=== PATIENT | female | born 1955 | race African-American/Black ===

== ENCOUNTER 2020-08-19 14:44 | Observation (INO) ==
[2020-08-19 15:32] VITALS: BMI 29.7
--- NOTE | 2020-08-19 15:34 | DR.AMS ---
HPI Time Seen Time Seen by Provider: 08/19/20 15:06 HPI Comment HPI Comment: FAMILY CALLED EMS TO HOME FOR PATIENT WITH COMPLAINS OF EMESIS AND DIARRHEA X 1 WEEK. SPOUSE STATES PATIENT HAS EPISODES OF LETHARG AND CONFUSION. UNKNOWN IF PATIENT HAS BEEN TAKING EXTRA NORCO 10/325, SOMA AND GABAPENTIN. A DMITS THAT PATIENT IS ALWAYS DROWSY. NO HISTORY OF FEVER, COUGH OR DYSPNEA. PATIENT TESTED NEGATIVE FOR COVID 2 DAYS AGO IN PRIMARY CARE PROVIDER OFFICE. Complaint Cheif Complaint Doctors Comments: CONFUSION, VOMITING AND DIARRHEA Reviewed Nurses Notes Reviewed: Yes Source History Provided: Patient and Family Member Mode of Arrival Mode of Arrival: EMS Timing Onset of Chief Complaint: 08/12/20 Onset of Symptoms Start Date: 08/12/20 Context Recent: Nausea and Vomiting Associated Signs and Symptoms Associated Signs and Symptoms: Generalized Weakness and Confusion PMH PMH Past Medical History: Hypertension and Hypothyroidism Past Surgical History: Yes Surgical History: Appendectomy and Hysterectomy Family History Family Medical History: Diabetes Mellitus, Cancer, Coronary Artery Disease and Hypertension Social History Do you use any recreational Drugs:: No ROS Review of Systems Constitutional: See HPI Eyes: No Symptoms Reported ENTM: No Symptoms Reported Respiratoy: No Symptoms Reported Cardiovascular: No Symptoms Reported Gastrointestinal/Abdominal: See HPI, Diarrhea and Nausea Genitourinary: No Symptoms Reported Neurological: See HPI Musculoskeletal: No Symptoms Reported Integumentary: No Symptoms Reported Hematologic/Lymphatic: No Symptoms Reported Endocrine: No Symptoms Reported Psychiatric: No Symptoms Reported All Other Systems: Reviewed and Negative PE Vitals Vital Signs: Temp Pulse Pulse Resp BP BP Pulse Ox 08/19/20 17:45 116 H 08/19/20 17:30 116 H 34 H 126/76 08/19/20 17:24 113 H 121/65 08/19/20 17:18 99.0 F 118 H 20 128/80 98 08/19/20 17:15 119 H 25 H 08/19/20 17:00 109 H 22 08/19/20 16:45 104 H 24 08/19/20 16:30 108 H 19 08/19/20 16:26 110 H 12 08/19/20 16:03 113 H 34 H 08/19/20 15:45 105 H 32 H 08/19/20 15:44 105 H 23 128/80 08/19/20 15:30 105 H 18 08/19/20 15:18 104 H 21 97 08/19/20 14:46 99.1 F 115 H 20 139/82 97 04/02/18 08:20 166/94 General Limitations: No Limitations General Appearance: Alert (TO AGE, PERSON AND PLACE) and Lethargic (HAS EPISODES OF LETHARGY) Head Head Exam: Normal Inspection, Atraumatic and Normocephalic Eyes Eye exam: Normal Appearance and EOMI Pupils: Regular, Round: Bilateral ENT ENT Exam: Mucous Membranes Dry TM/Canal Exam: Bilateral: Normal Neck Neck Exam: Normal Inspection and Full ROM Chest Chest Inspection: Normal Inspection and Symmetric Chest Wall Rise Respiratory Respiratory Exam: Normal Lung Sounds Bilat Respiratory Exam: Bilateral: Clear to Auscultation Cardiovascular Cardiovascular Exam: Tachycardia Abdominal Exam Abdominal Exam: Normal Inspection, Normal Bowel Sounds and Tenderness (PERIUMBILICAL TENDERNESS) Abdominal Tenderness: Moderate (PERIUMBILICAL TENDERNESS) Back Back Exam: Normal Inspection and Full ROM Neurological Neurological Exam: Alert, Oriented X3 (ORIENTED X 2) and CN II-XII Intact Psychological Psychiatric Exam: Normal Mood and Flat Affect Skin Skin Exam: Warm and Dry MDM Differential Diagnosis Metabolic: Dehydration (ALTERED MENTAL STATUS) and Hypoglycemia COURSE Treatment Treatment: IV NORMAL SALINE 250ML/HR, ROCEPHIN 1GM IVPB FOR URINARY INFECTION, Consultation Call Returned: 17:45 Consultation Comments: DISCUSSED WITH DR BURGOS AT 1745 FOR ADMIT TO OBSERVATION ROR Labs Reviewed Laboratory Results Reviewed?: Yes Result Diagrams: 08/19/20 15:34 08/19/20 15:34 Laboratory: WBC 8.7 X10^3/uL (3.6-10.0) 08/19/20 15:34 RBC 3.63 X10^6/uL (3.5-5.4) 08/19/20 15:34 Hgb 11.1 g/dL (12.0-16.0) L 08/19/20 15:34 Hct 33.5 % (36.0-47.0) L 08/19/20 15:34 MCV 92.4 fL (80.0-100.0) 08/19/20 15:34 MCH 30.7 pg (27.0-34.0) 08/19/20 15:34 MCHC 33.2 g/dL (33.0-35.0) 08/19/20 15:34 RDW 13.8 % (11.6-16.5) 08/19/20 15:34 Plt Count 378 X10^3/uL (150.0-450.0) 08/19/20 15:34 MPV 8.6 fL (7.4-11.0) 08/19/20 15:34 Neut % (Auto) 65.1 % (42.0-75.0) 08/19/20 15:34 Lymph % (Auto) 24.2 % (21.0-51.0) 08/19/20 15:34 [place] % (Auto) 8.1 % (0.0-13.0) 08/19/20 15:34 Eos % (Auto) 2.2 % (0.9-2.9) 08/19/20 15:34 Baso % (Auto) 0.4 % (0.2-1.0) 08/19/20 15:34 Neut # (Auto) 5.7 x10^3/uL (2.2-4.8) H 08/19/20 15:34 Lymph # (Auto) 2.1 X10^3/uL (1.3-2.9) 08/19/20 15:34 [place] # (Auto) 0.7 x10^3/uL (0.3-0.8) 08/19/20 15:34 Eos # (Auto) 0.2 x10^3/uL (0.0-0.2) 08/19/20 15:34 Baso # (Auto) 0.0 X10^3/uL (0.0-0.1) 08/19/20 15:34 Absolute Nucleated RBC 0.1 /100WBC 08/19/20 15:34 Sodium 143 mmol/L (136-145) 08/19/20 15:34 Corrected Sodium TNP 08/19/20 15:34 Potassium 3.7 mmol/L (3.5-5.1) 08/19/20 15:34 Chloride 106 mmol/L (98-107) 08/19/20 15:34 Carbon Dioxide 21.8 mmol/L (21-32) 08/19/20 15:34 BUN 21 mg/dL (7-18) H 08/19/20 15:34 Creatinine 1.58 mg/dL (0.55-1.02) H 08/19/20 15:34 Est GFR (MDRD) Af Amer 42 (>60) L 08/19/20 15:34 Est GFR (MDRD) Non-Af 35 (>60) L 08/19/20 15:34 Glucose 103 mg/dL (65-99) H 08/19/20 15:34 Calcium 9.1 mg/dL (8.5-10.1) 08/19/20 15:34 Corrected Calcium 10.1 mg/dL (8.5-10.1) 08/19/20 15:34 Total Bilirubin 0.50 mg/dL (0.2-1.0) 08/19/20 15:34 AST 64 Units/L (15-37) H 08/19/20 15:34 ALT 60 Units/L (12-78) 08/19/20 15:34 Alkaline Phosphatase 88 Units/L (46-116) 08/19/20 15:34 Total Protein 8.5 g/dL (6.4-8.2) H 08/19/20 15:34 Albumin 2.8 g/dL (3.4-5.0) L 08/19/20 15:34 Globulin 5.7 g/dL (2.5-4.5) H 08/19/20 15:34 Albumin/Globulin Ratio 0.5 Ratio (1.1-2.1) L 08/19/20 15:34 Specimen Type Catherized urine 08/19/20 15:12 Urine Color Yellow (YELLOW) 08/19/20 15:12 Urine Appearance Slightly hazy (CLEAR) 08/19/20 15:12 Urine pH 5.0 (5.0 - 8.0) 08/19/20 15:12 Ur Specific [place] 1.015 (1.000-1.030) 08/19/20 15:12 Urine Protein 2+ (NEGATIVE) 08/19/20 15:12 Urine Glucose (UA) Negative (NEGATIVE) 08/19/20 15:12 Urine Ketones Negative (NEGATIVE) 08/19/20 15:12 Urine Occult Blood 1+ (NEGATIVE) 08/19/20 15:12 Urine Nitrite Negative (NEGATIVE) 08/19/20 15:12 Urine Bilirubin Negative (NEGATIVE) 08/19/20 15:12 Urine Urobilinogen Normal (NORMAL) 08/19/20 15:12 Ur Leukocyte Esterase 1+ (NEGATIVE) 08/19/20 15:12 Urine RBC 0-2 /HPF (0-3) 08/19/20 15:12 Urine WBC 3-5 /HPF (0-5) 08/19/20 15:12 Ur Squamous Epith Cells Moderate /HPF (NEGATIVE) 08/19/20 15:12 Urine Bacteria Trace /HPF (NEGATIVE) 08/19/20 15:12 Urine Mucus Rare /HPF (NEGATIVE) 08/19/20 15:12 Ur Culture Indicated? No/not indicated 08/19/20 15:12 Urine Opiates Screen Positive (NEG=<300) A 08/19/20 17:48 Urine Methadone Screen Negative (NEG=<300) 08/19/20 17:48 Ur Barbiturates Screen Negative (NEG=<200) 08/19/20 17:48 Ur Phencyclidine Scrn Negative (NEG=<25) 08/19/20 17:48 Ur Amphetamines Screen Negative (NEG=<1000) 08/19/20 17:48 U Benzodiazepines Scrn Positive (NEG=<200) A 08/19/20 17:48 Urine Cocaine Screen Negative (NEG=<300) 08/19/20 17:48 U Marijuana (THC) Screen Negative (NEG=<50) 08/19/20 17:48 SARS CoV-2 RNA Rapid CONRADO Positive (NEGATIVE) A 08/19/20 17:24 Other Results Comments: POSITIVE FOR COVID, XRAY X-ray Results: CHEST XRAY PORTABLE NEGATIVE FOR INFILTRATES, HEAD CT SCAN NEGATIVE, ABDOMINAL PELVIC CT SCAN NONCONTRAST NO INTRA-ABDOMINAL ABNORMALITY, THERE IS PATCH GROUND GLASS OPACITY IN LOWER LOBS EKG Rate: 106 [place]: Normal Rhythm: NSR and ST Opioid Opioid Risk Tool Total: 0 Total Score Risk Category: Low Risk Copyright: Peng LARIOS predicting aberrant behaviors Diagnosis Discharge Problem: Acute alteration in mental status, COVID-19, Acute dehydration, Urinary tract infection
[2020-08-19 15:45] LABS: BILIRUBIN,URINE NEGATIVE (NEGATIVE); BLOOD/HEMOGLOBIN,URINE 1+ (NEGATIVE); GLUCOSE, URINE NEGATIVE (NEGATIVE); KETONES,URINE NEGATIVE (NEGATIVE); LEUKOCYTE ESTERASE ,URINE 1+ (NEGATIVE); NITRITES,URINE NEGATIVE (NEGATIVE); PROTEIN,URINE 2+ (NEGATIVE); UROBILINOGEN,URINE NORMAL (NORMAL)
[2020-08-19 15:55] LABS: APPEARANCE,URINE SLIGHTLY HAZY (CLEAR); COLOR,URINE YELLOW (YELLOW)
[2020-08-19 15:56] LABS: BACTERIA,URINE TRACE /HPF (NEGATIVE); MUCUS,URINE RARE /HPF (NEGATIVE); RBC,URINE 0-2 /HPF (0-3); SQUAMOUS EPITHELIAL CELL,UR MODERATE /HPF (NEGATIVE)
[2020-08-19 16:01] LABS: BASOPHILS % (AUTO) 0.4 % (0.2-1.0); EOSINOPHILS # (AUTO) 0.2 x10^3/uL (0.0-0.2); EOSINOPHILS % (AUTO) 2.2 % (0.9-2.9); HEMATOCRIT 33.5 % (36.0-47.0); HEMOGLOBIN 11.1 g/dL (12.0-16.0); LYMPHOCYTES # (AUTO) 2.1 X10^3/uL (1.3-2.9); LYMPHOCYTES % (AUTO) 24.2 % (21.0-51.0); MEAN CORPUSCULAR HEMOGLOBIN 30.7 pg (27.0-34.0); MEAN CORPUSCULAR HGB CONC 33.2 g/dL (33.0-35.0); MEAN CORPUSCULAR VOLUME 92.4 fL (80.0-100.0); MEAN PLATELET VOLUME 8.6 fL (7.4-11.0); MONOCYTES # (AUTO) 0.7 x10^3/uL (0.3-0.8); MONOCYTES % (AUTO) 8.1 % (0.0-13.0); NEUTROPHILS # (AUTO) 5.7 x10^3/uL (2.2-4.8); NEUTROPHILS % (AUTO) 65.1 % (42.0-75.0); PLATELET COUNT 378 X10^3/uL (150.0-450.0); RED BLOOD COUNT 3.63 X10^6/uL (3.5-5.4); RED CELL DISTRIBUTION WIDTH 13.8 % (11.6-16.5); WHITE BLOOD COUNT 8.7 X10^3/uL (3.6-10.0)
[2020-08-19 16:04] LABS: ALANINE AMINOTRANSFERASE 60 Units/L (12-78); ALBUMIN 2.8 g/dL (3.4-5.0); ALKALINE PHOSPHATASE 88 Units/L (46-116); ASPARTATE AMINO TRANSFERASE 64 Units/L (15-37); BLOOD UREA NITROGEN 21 mg/dL (7-18); CALCIUM 9.1 mg/dL (8.5-10.1); CARBON DIOXIDE 21.8 mmol/L (21-32); CHLORIDE 106 mmol/L (98-107); COR CA(FOR HYPOALB) 10.1 mg/dL (8.5-10.1); CREATININE 1.58 mg/dL (0.55-1.02); SODIUM 143 mmol/L (136-145); TOTAL PROTEIN 8.5 g/dL (6.4-8.2); eGFR NON BLACK RACES 35 (>60)
[2020-08-19] MEDS ORDERED: NS 1000 ML 1,000 ML IV ONE (16:11)
[2020-08-19] MEDS ORDERED: NS 1000 ML 1,000 ML ONE (16:12)
--- NOTE | 2020-08-19 16:18 | CT ---
BRAIN W/O CONCLINICAL INDICATION: AMSTECHNIQUE: Images were obtained through the head per standard CT protocol. Multiplanar reformatted images were generated from the CT dataset. Dose reduction techniques including Automated Exposure Control (AEC) and adjustment of mA and kV were utlized.COMPARISON:None.FINDINGS:There is no abnormal brain parenchymal density . There is no evidence of acute infarction, intracranial hemorrhage, mass or mass effect, or abnormal extra-axial collection . The density of the larger dural venous sinuses is normal . The ventricles are normal in size, shape and position . The skull base and calvarium are normal .The included paranasal sinuses and mastoid air cells are predominantly clear .IMPRESSION:1. No acute intracranial abnormality.Electronically signed by: MIRELA NAVARRETE (Aug 19, 2020 16:15:58)
--- NOTE | 2020-08-19 16:19 | RAD ---
HISTORYCOUGHSTUDYCHEST, 1 VIEWCOMPARISONNoneFINDINGSThe trachea is midline. The cardiac silhouette is unremarkable . The lungs are clear without focal infiltrate or effusion. The bony thorax is unremarkable.IMPRESSIONNo acute cardiopulmonary disease.Electronically signed by: SIA MONTES (Aug 19, 2020 16:17:11)
--- NOTE | 2020-08-19 16:36 | CT ---
HISTORYfamily states pt has had ams and weakness x several days. Hypertension.STUDYABDOMEN/PELVIS W/O CONCOMPARISONNoneTECHNIQUEMultiple CT axial images of the abdomen and pelvis were obtained without IV contrast. Coronal and sagittal images were reconstructed. Dose reduction techniques included Automated Exposure Control (AEC) and adjustment of mA and kV.FINDINGSPatchy bilateral areas of ground-glass opacity in the lungs are compatible with bronchopneumonia. The appearance is typical for COVID-19. Recommend correlation with COVID testing.No pleural effusion or pneumothorax. Heart size normal.The liver is normal in size and configuration. The gallbladder has no inflammation around it. The spleen is normal in size and shape.The adrenal glands are normal. The pancreas is normal.The kidneys have normal size and shape. No abnormal calcification is present. There is no hydronephrosis or significant perirenal edema. The ureters are not dilated. Sharma balloon catheter is in a contracted urinary bladder.The bowel is not dilated. There is no wall thickening in the bowel or edema around the bowel.No uterus identified. No mass or free fluid. No inflammatory changes.Degenerative changes are present in the spine. Fixation hardware is present.IMPRESSION1. Findings compatible with COVID-19 pneumonia2. No acute finding in the abdomen or pelvisElectronically signed by: Ryan Holloway (Aug 19, 2020 16:34:56)
[2020-08-19] MEDS ORDERED: ROCEPHIN 1 GRAM IV PREMIX 1 G/50 ML IV.SOLN. IV ONE ×2 (17:10→17:16)
[2020-08-19] MEDS ORDERED: ROCEPHIN VIAL 1 GRAM 0.75 G in NS 50 ML IV 50 ML IV SCH (19:33)
[2020-08-19] MEDS: NORCO 10/325 TAB PO PRN (20:20)
[2020-08-19] MEDS ORDERED: PERIACTIN TAB 4 MG PO SCH (21:00)
[2020-08-19] MEDS: NS 1000 ML 1,000 ML IV SCH (21:45)
[2020-08-19] MEDS: ZESTRIL TAB 40 MG PO SCH (21:52)
[2020-08-20] MEDS: SYNTHROID 125 mcg TAB PO SCH (07:25)
[2020-08-20 08:24] LABS: BASOPHILS # (AUTO) 0.2 X10^3/uL (0.0-0.1); BASOPHILS % (AUTO) 1.4 % (0.2-1.0); EOSINOPHILS # (AUTO) 0.1 x10^3/uL (0.0-0.2); EOSINOPHILS % (AUTO) 0.5 % (0.9-2.9); HEMATOCRIT 29.7 % (36.0-47.0); HEMOGLOBIN 9.7 g/dL (12.0-16.0); LYMPHOCYTES % (AUTO) 9.2 % (21.0-51.0); MEAN CORPUSCULAR HGB CONC 32.6 g/dL (33.0-35.0); MEAN PLATELET VOLUME 8.2 fL (7.4-11.0); MONOCYTES # (AUTO) 0.9 x10^3/uL (0.3-0.8); MONOCYTES % (AUTO) 7.8 % (0.0-13.0); NEUTROPHILS # (AUTO) 9.2 x10^3/uL (2.2-4.8); NEUTROPHILS % (AUTO) 81.1 % (42.0-75.0); PLATELET COUNT 419 X10^3/uL (150.0-450.0); RED BLOOD COUNT 3.23 X10^6/uL (3.5-5.4); RED CELL DISTRIBUTION WIDTH 14.1 % (11.6-16.5); WHITE BLOOD COUNT 11.4 X10^3/uL (3.6-10.0)
[2020-08-20 08:34] LABS: ALANINE AMINOTRANSFERASE 59 Units/L (12-78); ALBUMIN 2.4 g/dL (3.4-5.0); ALKALINE PHOSPHATASE 79 Units/L (46-116); ASPARTATE AMINO TRANSFERASE 78 Units/L (15-37); BLOOD UREA NITROGEN 10 mg/dL (7-18); CALCIUM 8.6 mg/dL (8.5-10.1); CARBON DIOXIDE 21.6 mmol/L (21-32); CHLORIDE 110 mmol/L (98-107); COR CA(FOR HYPOALB) 9.9 mg/dL (8.5-10.1); COR NA(FOR HYPERGLY) 146 mmol/L (136-145); SODIUM 144 mmol/L (136-145); TOTAL PROTEIN 7.6 g/dL (6.4-8.2); eGFR NON BLACK RACES 60 (>60)
[2020-08-20] MEDS: ZESTRIL TAB 40 MG PO SCH (09:11)
[2020-08-20] MEDS: CELEXA PO SCH (09:11)
[2020-08-20] MEDS: PREMARIN PO SCH (09:11)
[2020-08-20] MEDS: NEURONTIN TAB 600 MG PO SCH ×2 (09:11→20:20)
[2020-08-20] MEDS: PROTONIX TAB 40 MG PO SCH (09:11)
[2020-08-20] MEDS: ROCEPHIN VIAL 1 GRAM 1 G in NS 50 ML IV 50 ML IV SCH (09:12)
[2020-08-20] MEDS: DUONEB 0.5 MG/3 MG (3 mL) NEB SCH ×2 (09:23→21:09)
--- NOTE | 2020-08-20 10:03 | DR.H&P ---
H&P History & Physical for Day of: H&P Date: 08/20/20 Chief Complaint Chief Complaint: weakness, confusion, diarrhea Allergies Allergies Allergy/AdvReac Type Severity Reaction Status Date / Time No Known Drug Allergies Allergy Verified 04/02/18 05:17 History of Present Illness History of Present Illness: Ms. Loya is a 65y/o female with a PMH of HTN, HLD, GERD, DDD and anxiety presented with generalized weakness, confusion and dehydration. Patient has had these Sx for over 2 weeks and gradually worsening. She was seen in the clinic on 08/17/20 for similar Sx and COVID swab was collected. Patient's COVID test came back negative but she continued to have wor sening Sx so was brought to the ER. Patient has been having poor appetite and diarrhea. Unable to obtain proper history as patient has been upset since she got admitted and refusing medications and treatment. Patient had a rapid covid test done in the ER and that was positive for COVID- 19. Patient was told the results and she became very upset. Patient wanted to leave AMA last night but since she was not alert/oriented, patient's wanted her to stay and get treated. Patient is currently alert and oriented. She is currently on room air. ER work-up - CTAP: patchy ground glass opacities concerning for COVID-19 pneumonia, no acute process in the abdomen - CXR: no acute process - CT-brain: no acute process Labs: Hgb 9.7 WBC 11.4 BUN/Cr: 10/1 (down from 1.58) CRP 224 AT 78 UDS: Benzo + Opiates - COVID-19 positive - UA: + LE, WBC present, trace bacteria Plan: continue gentle hydration. Continue IV Rocephin. Will check for C.diff. Resume home medications. Add Duonebs prn. Monitor AM labs/Imaging. Past Medical History Past Medical History: Arthritis, GERD, Hypertension and Hypothyroidism Past Surgical History Surgical History: Appendectomy and Hysterectomy Family History Family Medical History: Diabetes Mellitus, Cancer, Coronary Artery Disease and Hypertension Social History Does any household member use tobacco: No Alcohol Use: None Prescription drug monitoring program results: PDMP reviewed and no concerns identified Medications Home Medications: No Known Drug Allergies Allergy (Verified 04/02/18 05:17) Labs Result Diagrams: 08/20/20 08:02 08/20/20 08:02 Labs: Laboratory WBC 11.4 X10^3/uL (3.6-10.0) H 08/20/20 08:02 RBC 3.23 X10^6/uL (3.5-5.4) L 08/20/20 08:02 Hgb 9.7 g/dL (12.0-16.0) L 08/20/20 08:02 Hct 29.7 % (36.0-47.0) L 08/20/20 08:02 MCV 92.0 fL (80.0-100.0) 08/20/20 08:02 MCH 30.0 pg (27.0-34.0) 08/20/20 08:02 MCHC 32.6 g/dL (33.0-35.0) L 08/20/20 08:02 RDW 14.1 % (11.6-16.5) 08/20/20 08:02 Plt Count 419 X10^3/uL (150.0-450.0) 08/20/20 08:02 MPV 8.2 fL (7.4-11.0) 08/20/20 08:02 Neut % (Auto) 81.1 % (42.0-75.0) H 08/20/20 08:02 Lymph % (Auto) 9.2 % (21.0-51.0) L 08/20/20 08:02 [place] % (Auto) 7.8 % (0.0-13.0) 08/20/20 08:02 Eos % (Auto) 0.5 % (0.9-2.9) L 08/20/20 08:02 Baso % (Auto) 1.4 % (0.2-1.0) H 08/20/20 08:02 Neut # (Auto) 9.2 x10^3/uL (2.2-4.8) H 08/20/20 08:02 Lymph # (Auto) 1.0 X10^3/uL (1.3-2.9) L 08/20/20 08:02 [place] # (Auto) 0.9 x10^3/uL (0.3-0.8) H 08/20/20 08:02 Eos # (Auto) 0.1 x10^3/uL (0.0-0.2) 08/20/20 08:02 Baso # (Auto) 0.2 X10^3/uL (0.0-0.1) H 08/20/20 08:02 Absolute Nucleated RBC 0.0 /100WBC 08/20/20 08:02 Sodium 144 mmol/L (136-145) 08/20/20 08:02 Corrected Sodium 146 mmol/L (136-145) H 08/20/20 08:02 Potassium 3.7 mmol/L (3.5-5.1) 08/20/20 08:02 Chloride 110 mmol/L (98-107) H 08/20/20 08:02 Carbon Dioxide 21.6 mmol/L (21-32) 08/20/20 08:02 BUN 10 mg/dL (7-18) 08/20/20 08:02 Creatinine 1.00 mg/dL (0.55-1.02) 08/20/20 08:02 Est GFR (MDRD) Af Amer > 60 (>60) 08/20/20 08:02 Est GFR (MDRD) Non-Af 60 (>60) 08/20/20 08:02 Glucose 171 mg/dL (65-99) H 08/20/20 08:02 Calcium 8.6 mg/dL (8.5-10.1) 08/20/20 08:02 Corrected Calcium 9.9 mg/dL (8.5-10.1) 08/20/20 08:02 Total Bilirubin 0.40 mg/dL (0.2-1.0) 08/20/20 08:02 AST 78 Units/L (15-37) H 08/20/20 08:02 ALT 59 Units/L (12-78) 08/20/20 08:02 Alkaline Phosphatase 79 Units/L (46-116) 08/20/20 08:02 C-Reactive Protein 224.10 mg/L (0-3.0) H 08/20/20 08:02 Total Protein 7.6 g/dL (6.4-8.2) 08/20/20 08:02 Albumin 2.4 g/dL (3.4-5.0) L 08/20/20 08:02 Globulin 5.2 g/dL (2.5-4.5) H 08/20/20 08:02 Albumin/Globulin Ratio 0.5 Ratio (1.1-2.1) L 08/20/20 08:02 Specimen Type Catherized urine 08/19/20 15:12 Urine Color Yellow (YELLOW) 08/19/20 15:12 Urine Appearance Slightly hazy (CLEAR) 08/19/20 15:12 Urine pH 5.0 (5.0 - 8.0) 08/19/20 15:12 Ur Specific [place] 1.015 (1.000-1.030) 08/19/20 15:12 Urine Protein 2+ (NEGATIVE) 08/19/20 15:12 Urine Glucose (UA) Negative (NEGATIVE) 08/19/20 15:12 Urine Ketones Negative (NEGATIVE) 08/19/20 15:12 Urine Occult Blood 1+ (NEGATIVE) 08/19/20 15:12 Urine Nitrite Negative (NEGATIVE) 08/19/20 15:12 Urine Bilirubin Negative (NEGATIVE) 08/19/20 15:12 Urine Urobilinogen Normal (NORMAL) 08/19/20 15:12 Ur Leukocyte Esterase 1+ (NEGATIVE) 08/19/20 15:12 Urine RBC 0-2 /HPF (0-3) 08/19/20 15:12 Urine WBC 3-5 /HPF (0-5) 08/19/20 15:12 Ur Squamous Epith Cells Moderate /HPF (NEGATIVE) 08/19/20 15:12 Urine Bacteria Trace /HPF (NEGATIVE) 08/19/20 15:12 Urine Mucus Rare /HPF (NEGATIVE) 08/19/20 15:12 Ur Culture Indicated? No/not indicated 08/19/20 15:12 Urine Opiates Screen Positive (NEG=<300) A 08/19/20 17:48 Urine Methadone Screen Negative (NEG=<300) 08/19/20 17:48 Ur Barbiturates Screen Negative (NEG=<200) 08/19/20 17:48 Ur Phencyclidine Scrn Negative (NEG=<25) 08/19/20 17:48 Ur Amphetamines Screen Negative (NEG=<1000) 08/19/20 17:48 U Benzodiazepines Scrn Positive (NEG=<200) A 08/19/20 17:48 Urine Cocaine Screen Negative (NEG=<300) 08/19/20 17:48 U Marijuana (THC) Screen Negative (NEG=<50) 08/19/20 17:48 SARS CoV-2 RNA Rapid CONRADO Positive (NEGATIVE) A 08/19/20 17:24 Review of Systems Constitutional: Fever, Weakness and Malaise Eyes: No Symptoms Reported ENT: No Symptoms Reported Respiratory: No Symptoms Reported Cardiovascular: No Symptoms Reported Gastrointestinal: Nausea and Diarrhea Genitourinary: No Symptoms Reported Musculoskeletal: Back Pain Skin: No Symptoms Reported Neurological: Confusion Physical Exam Vital Signs: Temperature 99.7 F Pulse Rate [Apical] 127 Pulse Rate [Left Radial] 118 Pulse Rate 116 Respiratory Rate 24 Blood Pressure [Left Arm] 159/76 Blood Pressure 126/76 O2 Sat by Pulse Oximetry 92 Oriented: Normal Eyes: Normal Ear: Normal Throat: Dry Respiratory: Diminished Throughout Cardiovascular: Tachycardia Auscultation: Bowel Sounds: Increased Palpation: Normal Tenderness: Normal Skin: Decreased Turgur Musculoskeletal: Back:Thoracic, Back:Lumbar and Back:Paraspinous Psychiatric: Agitation Mood Description: Angry Affect: Angry Speech Pattern: Clear and Appropriate Assessment/Plan (1) Pneumonia due to COVID-19 virus: Status: Acute (2) COVID-19: Status: Acute (3) Diarrhea: Qualifiers: Diarrhea type: unspecified type Qualified Code(s): R19.7 - Diarrhea, unspecified Status: Acute (4) Urinary tract infection: Qualifiers: Hematuria presence: without hematuria Urinary tract infection type: acu te cystitis Qualified Code(s): N30.00 - Acute cystitis without hematuria Status: Acute (5) Acute alteration in mental status: Status: Acute (6) Acute dehydration: Status: Acute (7) Hypertension: Qualifiers: Hypertension type: unspecified Qualified Code(s): I10 - Essential (primary) hypertension Status: Acute (8) Anxiety: Status: Acute (9) Chronic, continuous use of opioids: Status: Acute Review H&P Reviewed: Yes Patient was examined?: Yes
[2020-08-20] MEDS: VITAMIN D3 125 mcg (5,000 UNITS) PO SCH (10:30)
[2020-08-20] MEDS: VITAMIN C PO SCH (10:30)
[2020-08-20] MEDS: NS 1000 ML 1,000 ML IV SCH (14:14)
[2020-08-20] MEDS: XANAX PO PRN (20:20)
[2020-08-20] MEDS: NORCO 10/325 TAB PO PRN (20:20)
[2020-08-21] MEDS ORDERED: AMBIEN PO PRN (00:13)
[2020-08-21] MEDS: NS 1000 ML 1,000 ML IV SCH ×3 (00:14→16:30)
[2020-08-21 04:57] LABS: BLOOD UREA NITROGEN 6 mg/dL (7-18); CALCIUM 8.3 mg/dL (8.5-10.1); CARBON DIOXIDE 25.1 mmol/L (21-32); CHLORIDE 110 mmol/L (98-107); COR NA(FOR HYPERGLY) 144 mmol/L (136-145); CREATININE 0.81 mg/dL (0.55-1.02); SODIUM 144 mmol/L (136-145); eGFR NON BLACK RACES > 60 (>60)
[2020-08-21 04:59] LABS: BASOPHILS % (AUTO) 0.5 % (0.2-1.0); EOSINOPHILS # (AUTO) 0.2 x10^3/uL (0.0-0.2); EOSINOPHILS % (AUTO) 2.5 % (0.9-2.9); HEMATOCRIT 28.9 % (36.0-47.0); HEMOGLOBIN 9.3 g/dL (12.0-16.0); LYMPHOCYTES # (AUTO) 1.7 X10^3/uL (1.3-2.9); LYMPHOCYTES % (AUTO) 19.5 % (21.0-51.0); MEAN CORPUSCULAR HEMOGLOBIN 29.9 pg (27.0-34.0); MEAN CORPUSCULAR HGB CONC 32.2 g/dL (33.0-35.0); MEAN CORPUSCULAR VOLUME 92.9 fL (80.0-100.0); MEAN PLATELET VOLUME 8.3 fL (7.4-11.0); MONOCYTES # (AUTO) 0.9 x10^3/uL (0.3-0.8); MONOCYTES % (AUTO) 10.6 % (0.0-13.0); NEUTROPHILS # (AUTO) 5.8 x10^3/uL (2.2-4.8); NEUTROPHILS % (AUTO) 66.9 % (42.0-75.0); PLATELET COUNT 435 X10^3/uL (150.0-450.0); RED BLOOD COUNT 3.11 X10^6/uL (3.5-5.4); WHITE BLOOD COUNT 8.7 X10^3/uL (3.6-10.0)
[2020-08-21] MEDS ORDERED: MICRO K EXTEN CAP 10 MEQ PO PRN (05:39)
[2020-08-21] MEDS ORDERED: POTASSIUM CHL 40 MEQ/NS 0.45% 500 ML IV PRN (05:39)
[2020-08-21] MEDS ORDERED: POTASSIUM CHLORIDE LIQ 20 MEQ UDC PO PRN (05:39)
[2020-08-21] MEDS ORDERED: K-RIDER 10 MEQ/NS 100 ML 10 MEQ/100 ML BAG IV PRN (05:39)
[2020-08-21] MEDS ORDERED: POTASSIUM CHL 60 MEQ/NS 0.45% 500 ML IV PRN (05:39)
[2020-08-21] MEDS ORDERED: KLOR-CON PO PRN (05:39)
[2020-08-21] MEDS ORDERED: K-DUR TAB 20 MEQ PO PRN (05:39)
[2020-08-21] MEDS: MAGNESIUM SULFATE 1 GRAM/100 mL PREMIX 1 GM/100 ML BAG IV PRN ×2 (06:30→09:43)
[2020-08-21] MEDS: SYNTHROID 125 mcg TAB PO SCH (06:30)
[2020-08-21] MEDS: NORCO 10/325 TAB PO PRN (06:30)
[2020-08-21] MEDS: DUONEB 0.5 MG/3 MG (3 mL) NEB SCH (09:06)
[2020-08-21] MEDS: ZESTRIL TAB 40 MG PO SCH (09:34)
[2020-08-21] MEDS: VITAMIN D3 125 mcg (5,000 UNITS) PO SCH (09:34)
[2020-08-21] MEDS: VITAMIN C PO SCH (09:34)
[2020-08-21] MEDS: PROTONIX TAB 40 MG PO SCH (09:34)
[2020-08-21] MEDS: CELEXA PO SCH (09:34)
[2020-08-21] MEDS: NEURONTIN TAB 600 MG PO SCH ×3 (09:34→16:30)
[2020-08-21] MEDS: PREMARIN PO SCH (09:34)
[2020-08-21] MEDS: XANAX PO PRN (09:35)
[2020-08-21] MEDS: ROCEPHIN VIAL 1 GRAM 1 G in NS 50 ML IV 50 ML IV SCH (09:36)
[2020-08-21] MEDS ORDERED: NORCO 10/325 TAB PO ONE (10:56)
[2020-08-21] MEDS ORDERED: NORCO 10/325 TAB PO PRN ×2 (10:56→10:57)
[2020-08-21] MEDS ORDERED: XANAX PO ONE (13:14)
[2020-08-21] MEDS ORDERED: XANAX PO SCH (14:00)
[2020-08-21 16:30] VITALS: BP 161/89
--- NOTE | 2020-08-22 12:04 | W.DIS.FURT ---
Summary of Discharge Discharge Summary of Date Date of Exam: 08/21/20 Admission Date Date of Admission: 08/19/20 Admission Diagnosis Patient Problems (Updated 08/24/20 @ 14:29 by Analilia Patrick) Acute alteration in mental status (Acute) R41.82 COVID-19 (Acute) U07.1 Acute dehydration (Acute) E86.0 Urinary tract infection (Resolved) N39.0 Hospital Course: Ms. Loya is a 65y/o female with a PMH of HTN, HLD, GERD, DDD and anxiety presented with generalized weakness, confusion and dehydration. Patient has had these Sx for over 2 weeks and gradually worsening. She was seen in the clinic on 08/17/20 for similar Sx and COVID swab was collected. Patient's COVID test came back negative but she continued to have worsening Sx so was brought to the ER. Patient has been having poor appetite and diarrhea. Patient had a rapid covid test done in the ER and that was positive for COVID-19. CT-AP was done and did not show any acute process in the abdomen, it did show patchy ground glass opacities. CT-heas was negative. Her labs showed anemia, elevated WBC and elevated Creatinine. UA showed + LE and WBC. Patient was started on IV hydration and empiric Rocephin IV for UTI. Patient did not require oxygen. Duonebs were also added as needed. C.diff was ordered for diarrhea but did not get collected. Patient initially refused to cooperate and refused medications and treatment. Her labs were monitored daily and electrolytes replaced as needed. She did start eating a little bit and ambulated with RT. Her saturations remained stable on room air. Urine Cx showed no growth. Patient was stable for discharge. She was alert and oriented on discharge.She will f/u with PCP in 1 week for a tele- visit. Patient was instructed to quarantine and isolate at home for a total of 14 days. Patient verbalized understanding. Vital Signs: Vital Signs (72 hours) 08/19/20 14:46 08/19/20 15:18 08/19/20 15:30 Temperature 99.1 F Pulse Rate 115 H 104 H 105 H Pulse Rate [Apical] Pulse Rate [Left Radial] Respiratory Rate 20 21 18 Blood Pressure 139/82 Blood Pressure [Left Arm] Blood Pressure [Right Arm] O2 Sat by Pulse Oximetry 97 97 08/19/20 15:44 08/19/20 15:45 08/19/20 16:03 Temperature Pulse Rate 105 H 105 H 113 H Pulse Rate [Apical] Pulse Rate [Left Radial] Respiratory Rate 23 32 H 34 H Blood Pressure 128/80 Blood Pressure [Left Arm] Blood Pressure [Right Arm] O2 Sat by Pulse Oximetry 08/19/20 16:26 08/19/20 16:30 08/19/20 16:45 Temperature Pulse Rate 110 H 108 H 104 H Pulse Rate [Apical] Pulse Rate [Left Radial] Respiratory Rate 12 19 24 Blood Pressure Blood Pressure [Left Arm] Blood Pressure [Right Arm] O2 Sat by Pulse Oximetry 08/19/20 17:00 08/19/20 17:15 08/19/20 17:18 Temperature 99.0 F Pulse Rate 109 H 119 H Pulse Rate [Apical] Pulse Rate [Left Radial] 118 H Respiratory Rate 22 25 H 20 Blood Pressure Blood Pressure [Left Arm] 128/80 Blood Pressure [Right Arm] O2 Sat by Pulse Oximetry 98 08/19/20 17:24 08/19/20 17:30 08/19/20 17:45 Temperature Pulse Rate 113 H 116 H 116 H Pulse Rate [Apical] Pulse Rate [Left Radial] Respiratory Rate 34 H Blood Pressure 121/65 126/76 Blood Pressure [Left Arm] Blood Pressure [Right Arm] O2 Sat by Pulse Oximetry 08/19/20 21:20 08/20/20 00:00 08/20/20 04:00 Temperature 99.0 F 99.8 F H 99.7 F H Pulse Rate Pulse Rate [Apical] 116 H 130 H 127 H Pulse Rate [Left Radial] Respiratory Rate 28 H 22 24 Blood Pressure Blood Pressure [Left Arm] 138/86 170/76 159/76 Blood Pressure [Right Arm] O2 Sat by Pulse Oximetry 95 95 92 L 08/20/20 08:00 08/20/20 14:13 08/20/20 16:00 Temperature 98.6 F 98.7 F 98.8 F Pulse Rate Pulse Rate [Apical] 115 H 97 H 96 H Pulse Rate [Left Radial] Respiratory Rate 28 H 22 22 Blood Pressure Blood Pressure [Left Arm] 135/75 144/64 162/84 Blood Pressure [Right Arm] O2 Sat by Pulse Oximetry 96 96 08/20/20 20:00 08/20/20 20:20 08/20/20 21:09 Temperature 98.2 F Pulse Rate 95 H Pulse Rate [Apical] 97 H Pulse Rate [Left Radial] Respiratory Rate 25 H 22 Blood Pressure Blood Pressure [Left Arm] 160/73 Blood Pressure [Right Arm] O2 Sat by Pulse Oximetry 94 L 94 L 08/20/20 21:20 08/21/20 00:00 08/21/20 04:00 Temperature 97.4 F L 99.0 F Pulse Rate Pulse Rate [Apical] 78 85 Pulse Rate [Left Radial] Respiratory Rate 22 22 20 Blood Pressure Blood Pressure [Left Arm] 138/72 169/89 Blood Pressure [Right Arm] O2 Sat by Pulse Oximetry 100 95 08/21/20 06:30 08/21/20 07:30 08/21/20 08:00 Temperature Pulse Rate Pulse Rate [Apical] 74 Pulse Rate [Left Radial] Respiratory Rate 18 18 27 H Blood Pressure Blood Pressure [Left Arm] Blood Pressure [Right Arm] 138/68 O2 Sat by Pulse Oximetry 99 08/21/20 09:06 08/21/20 11:24 08/21/20 12:00 Temperature 97.9 F Pulse Rate 78 Pulse Rate [Apical] 100 H Pulse Rate [Left Radial] Respiratory Rate 20 30 H Blood Pressure Blood Pressure [Left Arm] Blood Pressure [Right Arm] 157/75 O2 Sat by Pulse Oximetry 99 96 08/21/20 12:24 08/21/20 14:15 08/21/20 16:00 Temperature 97.9 F Pulse Rate 78 Pulse Rate [Apical] 87 Pulse Rate [Left Radial] Respiratory Rate 18 18 15 Blood Pressure 126/76 Blood Pressure [Left Arm] Blood Pressure [Right Arm] 161/89 O2 Sat by Pulse Oximetry 98 98 Labs: Laboratory Last Values WBC 8.7 X10^3/uL (3.6-10.0) 08/21/20 04:20 RBC 3.11 X10^6/uL (3.5-5.4) L 08/21/20 04:20 Hgb 9.3 g/dL (12.0-16.0) L 08/21/20 04:20 Hct 28.9 % (36.0-47.0) L 08/21/20 04:20 MCV 92.9 fL (80.0-100.0) 08/21/20 04:20 MCH 29.9 pg (27.0-34.0) 08/21/20 04:20 MCHC 32.2 g/dL (33.0-35.0) L 08/21/20 04:20 RDW 14.0 % (11.6-16.5) 08/21/20 04:20 Plt Count 435 X10^3/uL (150.0-450.0) 08/21/20 04:20 MPV 8.3 fL (7.4-11.0) 08/21/20 04:20 Neut % (Auto) 66.9 % (42.0-75.0) 08/21/20 04:20 Lymph % (Auto) 19.5 % (21.0-51.0) L 08/21/20 04:20 [place] % (Auto) 10.6 % (0.0-13.0) 08/21/20 04:20 Eos % (Auto) 2.5 % (0.9-2.9) 08/21/20 04:20 Baso % (Auto) 0.5 % (0.2-1.0) 08/21/20 04:20 Neut # (Auto) 5.8 x10^3/uL (2.2-4.8) H 08/21/20 04:20 Lymph # (Auto) 1.7 X10^3/uL (1.3-2.9) 08/21/20 04:20 [place] # (Auto) 0.9 x10^3/uL (0.3-0.8) H 08/21/20 04:20 Eos # (Auto) 0.2 x10^3/uL (0.0-0.2) 08/21/20 04:20 Baso # (Auto) 0.0 X10^3/uL (0.0-0.1) 08/21/20 04:20 Absolute Nucleated RBC 0.1 /100WBC 08/21/20 04:20 Sodium 144 mmol/L (136-145) 08/21/20 04:20 Corrected Sodium 144 mmol/L (136-145) 08/21/20 04:20 Potassium 3.4 mmol/L (3.5-5.1) L 08/21/20 04:20 Chloride 110 mmol/L (98-107) H 08/21/20 04:20 Carbon Dioxide 25.1 mmol/L (21-32) 08/21/20 04:20 BUN 6 mg/dL (7-18) L 08/21/20 04:20 Creatinine 0.81 mg/dL (0.55-1.02) 08/21/20 04:20 Est GFR (MDRD) Af Amer > 60 (>60) 08/21/20 04:20 Est GFR (MDRD) Non-Af > 60 (>60) 08/21/20 04:20 Glucose 115 mg/dL (65-99) H 08/21/20 04:20 Calcium 8.3 mg/dL (8.5-10.1) L 08/21/20 04:20 Corrected Calcium 9.9 mg/dL (8.5-10.1) 08/20/20 08:02 Magnesium 1.6 mg/dL (1.7-2.9) L 08/21/20 04:20 Total Bilirubin 0.40 mg/dL (0.2-1.0) 08/20/20 08:02 AST 78 Units/L (15-37) H 08/20/20 08:02 ALT 59 Units/L (12-78) 08/20/20 08:02 Alkaline Phosphatase 79 Units/L (46-116) 08/20/20 08:02 C-Reactive Protein 164.80 mg/L (0-3.0) H 08/21/20 04:20 Total Protein 7.6 g/dL (6.4-8.2) 08/20/20 08:02 Albumin 2.4 g/dL (3.4-5.0) L 08/20/20 08:02 Globulin 5.2 g/dL (2.5-4.5) H 08/20/20 08:02 Albumin/Globulin Ratio 0.5 Ratio (1.1-2.1) L 08/20/20 08:02 Specimen Type Catherized urine 08/19/20 15:12 Urine Color Yellow (YELLOW) 08/19/20 15:12 Urine Appearance Slightly hazy (CLEAR) 08/19/20 15:12 Urine pH 5.0 (5.0 - 8.0) 08/19/20 15:12 Ur Specific [place] 1.015 (1.000-1.030) 08/19/20 15:12 Urine Protein 2+ (NEGATIVE) 08/19/20 15:12 Urine Glucose (UA) Negative (NEGATIVE) 08/19/20 15:12 Urine Ketones Negative (NEGATIVE) 08/19/20 15:12 Urine Occult Blood 1+ (NEGATIVE) 08/19/20 15:12 Urine Nitrite Negative (NEGATIVE) 08/19/20 15:12 Urine Bilirubin Negative (NEGATIVE) 08/19/20 15:12 Urine Urobilinogen Normal (NORMAL) 08/19/20 15:12 Ur Leukocyte Esterase 1+ (NEGATIVE) 08/19/20 15:12 Urine RBC 0-2 /HPF (0-3) 08/19/20 15:12 Urine WBC 3-5 /HPF (0-5) 08/19/20 15:12 Ur Squamous Epith Cells Moderate /HPF (NEGATIVE) 08/19/20 15:12 Urine Bacteria Trace /HPF (NEGATIVE) 08/19/20 15:12 Urine Mucus Rare /HPF (NEGATIVE) 08/19/20 15:12 Ur Culture Indicated? No/not indicated 08/19/20 15:12 Urine Opiates Screen Positive (NEG=<300) A 08/19/20 17:48 Urine Methadone Screen Negative (NEG=<300) 08/19/20 17:48 Ur Barbiturates Screen Negative (NEG=<200) 08/19/20 17:48 Ur Phencyclidine Scrn Negative (NEG=<25) 08/19/20 17:48 Ur Amphetamines Screen Negative (NEG=<1000) 08/19/20 17:48 U Benzodiazepines Scrn Positive (NEG=<200) A 08/19/20 17:48 Urine Cocaine Screen Negative (NEG=<300) 08/19/20 17:48 U Marijuana (THC) Screen Negative (NEG=<50) 08/19/20 17:48 SARS CoV-2 RNA Rapid CONRADO Positive (NEGATIVE) A 08/19/20 17:24 Reason For Visit: ALTERED MENTAL STATUS, DEHYDRATION, COVID 19 Discharge Date Discharge Date: 08/21/20 Discharge Diagnosis All Active Problems (Updated 08/24/20 @ 14:29 by Analilia Patrcik) Chronic, continuous use of opioids (Acute) Pneumonia due to COVID-19 virus (Acute) Diarrhea (Acute) Back pain (Chronic) Hypertension (Chronic) Anxiety (Chronic) Acute alteration in mental status (Acute) COVID-19 (Acute) Acute dehydration (Acute) Plan of Treatment: Continue with present treatment and follow up plan. Pt is to keep follow up appointment as instructed and take medications as ordered. Discharge Medications Discharge Medications: No Known Drug Allergies Allergy (Verified 04/02/18 05:17) CONTINUE taking the following medications alprazolam 1 mg PO BID 08/20/20 [History] carisoprodol 350 mg PO HS 08/20/20 [History] cyclobenzaprine 10 mg PO HS 08/20/20 [History] hydrocodone-acetaminophen 1 tab PO BID PRN 08/20/20 [History] lisinopril 20 mg PO DAILY 08/20/20 [History] loperamide 2 mg PO BID PRN 08/20/20 [History] loratadine 10 mg PO DAILY 08/20/20 [History] promethazine 12.5 mg PO BID PRN 08/20/20 [History] sucralfate 1 g PO TID 08/20/20 [History] zolpidem 10 mg PO HS 08/20/20 [History] Follow up and Referral Follow Up: 1 Week (PCP) Discharge Disposition Discharge Disposition: Home Discharge Condition: Stable Discharge Plan Discharge Plan Hospital Course: Ms. Loya is a 65y/o female with a PMH of HTN, HLD, GERD, DDD and anxiety presented with generalized weakness, confusion and dehydration. Patient has had these Sx for over 2 weeks and gradually worsening. She was seen in the clinic on 08/17/20 for similar Sx and COVID swab was collected. Patient's COVID test came back negative but she continued to have worsening Sx so was brought to the ER. Patient has been having poor appetite and diarrhea. Patient had a rapid covid test done in the ER and that was positive for COVID-19. CT-AP was done and did not show any acute process in the abdomen, it did show patchy ground glass opacities. CT-heas was negative. Her labs showed anemia, elevated WBC and elevated Creatinine. UA showed + LE and WBC. Patient was started on IV hydration and empiric Rocephin IV for UTI. Patient did not require oxygen. Duonebs were also added as needed. C.diff was ordered for diarrhea but did not get collected. Patient initially refused to cooperate and refused medications and treatment. Her labs were monitored daily and electrolytes replaced as needed. She did start eating a little bit and ambulated with RT. Her saturations remained stable on room air. Urine Cx showed no growth. Patient was stable for discharge. She was alert and oriented on discharge.She will f/u with PCP in 1 week for a tele- visit. Patient was instructed to quarantine and isolate at home for a total of 14 days. Patient verbalized understanding. Patient Disposition: 01 HOME, SELF-CARE Condition: Stable Health Concerns: Post Hospitalization: new medications and changes needed to prevent readmission or further decline. Pt educated and given instructions on all concerns. Plan of Treatment: Continue with present treatment and follow up plan. Pt is to keep follow up appointment as instructed and take medications as ordered. Prescription drug monitoring program results: PDMP reviewed and no concerns identified Prescriptions: Continued Premarin 1.25 MG tablet 1 tab PO DAILY RF: 0 Gabapentin [Neurontin tab 800 mg] 800 MG Tab 800 mg PO TID RF: 0 carisoprodol 350 mg Tablet 350 mg PO HS RF: 0 loperamide 2 mg Capsule 2 mg PO BID PRN (Reason: Diarrhea) RF: 0 sucralfate 1 gram Tablet 1 g PO TID RF: 0 loratadine 10 mg Tablet 10 mg PO DAILY RF: 0 hydrocodone-acetaminophen 10-325 mg Tablet 1 tab PO BID PRN (Reason: Pain) RF: 0 alprazolam 1 mg Tablet 1 mg PO BID RF: 0 promethazine 12.5 mg Tablet 12.5 mg PO BID PRNRF: 0 zolpidem 10 mg Tablet 10 mg PO HS RF: 0 lisinopril 20 mg Tablet 20 mg PO DAILY RF: 0 cyclobenzaprine 10 mg Tablet 10 mg PO HS RF: 0 Orders to Discharge Patient Discharge Orders: Discharge (Routine); Ordered 08/21/20 Ordered By: Analilia Patrick Follow ups/Referrals Follow ups/Referrals: Analilia Patrick [Primary Care Provider] - 3 days Instructions Stand Alone Forms: Excuse From Work or School, Precautions for COVID19, Patient Portal, Social Distancing
== END 2020-08-21 18:50 | disposition home or self-care (01) ==
LOC: ICU 14:45 → ER 14:45 → ICU 20:52
PROVIDERS: ADMIT Internal Medicine; ATTEND Internal Medicine
DX: R94.4 Abnormal results of kidney function studies; N30.00 Acute cystitis without hematuria; R41.82 Altered mental status, unspecified; E86.0 Dehydration; R79.82 Elevated C-reactive protein (CRP); I10 Essential (primary) hypertension; J12.82 Pneumonia due to coronavirus disease 2019; F41.8 Other specified anxiety disorders; F11.90 Opioid use, unspecified, uncomplicated; U07.1 COVID-19; R94.31 Abnormal electrocardiogram [ECG] [EKG]; K21.9 Gastro-esophageal reflux disease without esophagitis; R19.7 Diarrhea, unspecified; E03.8 Other specified hypothyroidism